=== PATIENT | female | born 1965 | race Two or more races ===

== ENCOUNTER 2020-05-09 13:22 | Inpatient (IN) | payer BC ==
[2020-05-09] MEDS ORDERED: SODIUM CHLORIDE 1,000 ML IV STA (14:54)
[2020-05-09] MEDS ORDERED: FAMOTIDINE 20 MG/50 ML IVPB 20 MG/50 ML MG IVPB ONE ×2 (15:21→16:25)
[2020-05-09] MEDS ORDERED: DEXAMETHASONE SOD PHOSPHATE 10 MG/1 ML VIAL IVPUSH ONE (15:21)
[2020-05-09] MEDS ORDERED: ONDANSETRON 4 MG/2 ML VIAL IVPB ONE (15:21)
[2020-05-09] MEDS ORDERED: ACETAMINOPHEN 325 MG TABLET (FP) PO ONE (15:34)
[2020-05-09 16:17] LABS: BASO % 0.3 % (0-2.0); HEMATOCRIT 38.5 % (32.4-45.2); HEMOGLOBIN 12.8 GM/dL (10.7-15.3); LYMPH % 17.2 % (8-40); MCH 29.8 pg (25.7-33.7); MCHC 33.3 g/dl (32.0-36.0); MEAN CELL VOLUME 89.3 fl (80-96); MEAN PLT VOLUME 8.8 fl (7.5-11.1); MONO % 5.3 % (3.8-10.2); NEUT % 77.2 % (42.8-82.8); PLATELET COUNT 146 K/MM3 (134-434); RBC 4.31 M/mm3 (3.60-5.2); RDW 13.3 % (11.6-15.6); WHITE BLOOD COUNT 4.1 K/mm3 (4.0-10.0)
[2020-05-09] MEDS ORDERED: ACETAMINOPHEN 325 MG TABLET (FP) ONE (16:24)
[2020-05-09] MEDS ORDERED: DEXAMETHASONE SOD PHOSPHATE 10 MG/1 ML VIAL ONE (16:25)
[2020-05-09] MEDS ORDERED: ONDANSETRON 4 MG/2 ML VIAL ONE (16:25)
[2020-05-09 16:29] LABS: CHLORIDE 102 mmol/L (98-107); POTASSIUM 3.9 mmol/L (3.5-5.1)
[2020-05-09 16:31] LABS: ALBUMIN 3.7 g/dl (3.4-5.0); BLOOD UREA NITROGEN 9.7 mg/dL (7-18); CALCIUM 8.2 mg/dL (8.5-10.1); CO2 28 mmol/L (21-32); GLUCOSE,RANDOM 120 mg/dL (74-106)
[2020-05-09 16:34] LABS: CREATININE 0.8 mg/dL (0.55-1.3); SGOT/AST 109 U/L (15-37); SGPT/ALT 149 U/L (13-61)
[2020-05-09 16:35] LABS: INR 1.09 (0.83-1.09); PROTHROMBIN TIME (PATIENT) 13.2 SEC (9.7-13.0)
[2020-05-09 16:37] LABS: BILIRUBIN,TOTAL 0.2 mg/dL (0.2-1); TOT PROT 7.2 g/dl (6.4-8.2)
[2020-05-09 16:38] LABS: ACTIVATED PTT 30.7 SECONDS (25.2-36.5); ALK PHOS 71 U/L (45-117)
[2020-05-09 16:40] LABS: LDH 400 U/L (84-246)
[2020-05-09 16:42] LABS: ANION GAP 4 MMOL/L (8-16); SODIUM 135 mmol/L (136-145)
[2020-05-09] MEDS ORDERED: SODIUM CHLORIDE 0.45% 1,000 ML IV SCH (17:15)
[2020-05-09 18:39] LABS: URINE APPEARANCE CLEAR; URINE BILIRUBIN NEGATIVE (NEGATIVE); URINE COLOR YELLOW; URINE GLUCOSE (UA) NEGATIVE (NEGATIVE); URINE KETONE NEGATIVE (NEGATIVE); URINE LEUK ESTERASE NEGATIVE (NEGATIVE); URINE NITRITE NEGATIVE (NEGATIVE); URINE PROTEIN NEGATIVE (NEGATIVE)
[2020-05-09] MEDS ORDERED: ASCORBIC ACID 500 MG TABLET (FP) ONE (21:39)
[2020-05-09] MEDS: ASCORBIC ACID 500 MG TABLET (FP) PO SCH (21:46)
[2020-05-09 23:29] VITALS: BMI 33.4
[2020-05-10] MEDS: ACETAMINOPHEN 325 MG TABLET (FP) PO PRN (05:32)
[2020-05-10 08:18] LABS: BASO % 0.3 % (0-2.0); HEMATOCRIT 36.2 % (32.4-45.2); HEMOGLOBIN 12.2 GM/dL (10.7-15.3); LYMPH % 18.9 % (8-40); MCH 30.3 pg (25.7-33.7); MCHC 33.8 g/dl (32.0-36.0); MEAN CELL VOLUME 89.8 fl (80-96); MEAN PLT VOLUME 8.7 fl (7.5-11.1); MONO % 5.2 % (3.8-10.2); NEUT % 75.6 % (42.8-82.8); PLATELET COUNT 166 K/MM3 (134-434); RBC 4.03 M/mm3 (3.60-5.2); RDW 13.1 % (11.6-15.6); WHITE BLOOD COUNT 4.5 K/mm3 (4.0-10.0)
[2020-05-10 08:41] LABS: POTASSIUM 4.2 mmol/L (3.5-5.1)
[2020-05-10 08:46] LABS: ALBUMIN 3.3 g/dl (3.4-5.0); MAGNESIUM 2.5 mg/dL (1.8-2.4)
[2020-05-10 08:49] LABS: BILIRUBIN,TOTAL 0.3 mg/dL (0.2-1); CREATININE 0.6 mg/dL (0.55-1.3); PHOSPHOROUS 2.9 mg/dL (2.5-4.9); TOT PROT 6.8 g/dl (6.4-8.2)
[2020-05-10] MEDS: DEXAMETHASONE 4 MG TABLET (FP) PO SCH (10:58)
[2020-05-10] MEDS: ENOXAPARIN NA (PORCINE) 40 MG/0.4 ML DISP.SYRIN SQ SCH (10:58)
[2020-05-10] MEDS: ASCORBIC ACID 500 MG TABLET (FP) PO SCH ×2 (10:59→21:22)
[2020-05-10] MEDS: CHOLECALCIFEROL (VIT D3) 5000 UNITS (125 MCG) CAP PO SCH (12:17)
[2020-05-10] MEDS ORDERED: REMDESIVIR 200 MG in SODIUM CHLORIDE 210 ML IVPB ONE (13:00)
[2020-05-10] MEDS ORDERED: AZITHROMYCIN IVPB 500 MG in DEXTROSE 5%-WATER - 250 ML IVPB ONE (14:48)
[2020-05-10] MEDS ORDERED: CEFTRIAXONE 1 GM in DEXTROSE 5%-WATER - 50 ML IVPB SCH (15:00)
[2020-05-10] MEDS ORDERED: PT OWN MED DRAWER 7, Y5N ONE (16:26)
[2020-05-10] MEDS ORDERED: AZITHROMYCIN IVPB 500 MG/250 ML BAG IVPB ONE (17:15)
[2020-05-11] MEDS: ACETAMINOPHEN 325 MG TABLET (FP) PO PRN ×2 (05:40→12:02)
[2020-05-11 08:41] LABS: HEMATOCRIT 34.7 % (32.4-45.2); HEMOGLOBIN 11.7 GM/dL (10.7-15.3); MCH 30.2 pg (25.7-33.7); MCHC 33.6 g/dl (32.0-36.0); MEAN CELL VOLUME 89.7 fl (80-96); PLATELET COUNT 184 K/MM3 (134-434); RBC 3.86 M/mm3 (3.60-5.2); RDW 13.4 % (11.6-15.6)
[2020-05-11 08:56] LABS: POTASSIUM 3.6 mmol/L (3.5-5.1)
[2020-05-11 09:05] LABS: CALCIUM 7.9 mg/dL (8.5-10.1)
[2020-05-11 09:06] LABS: ALBUMIN 3.3 g/dl (3.4-5.0); BLOOD UREA NITROGEN 12.4 mg/dL (7-18)
[2020-05-11 09:09] LABS: CREATININE 0.8 mg/dL (0.55-1.3)
[2020-05-11 09:10] LABS: BILIRUBIN,TOTAL 0.5 mg/dL (0.2-1); TOT PROT 6.6 g/dl (6.4-8.2)
[2020-05-11] MEDS ORDERED: AZITHROMYCIN IVPB 250 MG in DEXTROSE 5%-WATER - 250 ML IVPB SCH (10:00)
[2020-05-11] MEDS: ASCORBIC ACID 500 MG TABLET (FP) PO SCH ×2 (10:34→21:02)
[2020-05-11] MEDS: DEXAMETHASONE 4 MG TABLET (FP) PO SCH (10:34)
[2020-05-11] MEDS: CHOLECALCIFEROL (VIT D3) 5000 UNITS (125 MCG) CAP PO SCH (10:34)
[2020-05-11] MEDS: ENOXAPARIN NA (PORCINE) 40 MG/0.4 ML DISP.SYRIN SQ SCH (10:35)
[2020-05-11] MEDS: REMDESIVIR 100 MG in SODIUM CHLORIDE 230 ML IVPB SCH (13:10)
[2020-05-11] MEDS: FAMOTIDINE 20 MG TABLET PO SCH (21:02)
[2020-05-12] MEDS ORDERED: morphine CARPU-JECT 4 MG/1 ML DISP.SYRIN IVPUSH ONE (05:34)
[2020-05-12] MEDS: ENOXAPARIN NA (PORCINE) 40 MG/0.4 ML DISP.SYRIN SQ SCH (09:11)
[2020-05-12] MEDS: DEXAMETHASONE 4 MG TABLET (FP) PO SCH (09:11)
[2020-05-12] MEDS: CHOLECALCIFEROL (VIT D3) 5000 UNITS (125 MCG) CAP PO SCH (09:12)
[2020-05-12] MEDS: ASCORBIC ACID 500 MG TABLET (FP) PO SCH ×2 (09:12→21:43)
[2020-05-12] MEDS: FAMOTIDINE 20 MG TABLET PO SCH ×2 (09:12→21:43)
[2020-05-12 09:17] LABS: POTASSIUM 3.8 mmol/L (3.5-5.1)
[2020-05-12 09:21] LABS: CALCIUM 8.1 mg/dL (8.5-10.1)
[2020-05-12 09:22] LABS: ALBUMIN 3.2 g/dl (3.4-5.0); BLOOD UREA NITROGEN 14.3 mg/dL (7-18)
[2020-05-12 09:25] LABS: CREATININE 0.6 mg/dL (0.55-1.3)
[2020-05-12 09:26] LABS: BILIRUBIN,TOTAL 0.2 mg/dL (0.2-1); TOT PROT 6.8 g/dl (6.4-8.2)
[2020-05-12] MEDS: REMDESIVIR 100 MG in SODIUM CHLORIDE 230 ML IVPB SCH (13:32)
[2020-05-13 09:13] LABS: POTASSIUM 4.4 mmol/L (3.5-5.1)
[2020-05-13 09:22] LABS: CALCIUM 8.4 mg/dL (8.5-10.1)
[2020-05-13 09:23] LABS: ALBUMIN 3.3 g/dl (3.4-5.0); BLOOD UREA NITROGEN 15.5 mg/dL (7-18)
[2020-05-13 09:26] LABS: CREATININE 0.7 mg/dL (0.55-1.3)
[2020-05-13 09:27] LABS: BILIRUBIN,TOTAL 0.4 mg/dL (0.2-1); TOT PROT 6.7 g/dl (6.4-8.2)
[2020-05-13] MEDS ORDERED: PT OWN MED DRAWER 7, Y5N ONE (09:36)
[2020-05-13] MEDS: CHOLECALCIFEROL (VIT D3) 5000 UNITS (125 MCG) CAP PO SCH (09:44)
[2020-05-13] MEDS: FAMOTIDINE 20 MG TABLET PO SCH ×2 (09:45→21:06)
[2020-05-13] MEDS: ASCORBIC ACID 500 MG TABLET (FP) PO SCH ×2 (09:45→21:06)
[2020-05-13] MEDS: ENOXAPARIN NA (PORCINE) 40 MG/0.4 ML DISP.SYRIN SQ SCH (09:45)
[2020-05-13] MEDS: DEXAMETHASONE 4 MG TABLET (FP) PO SCH (09:45)
[2020-05-13] MEDS: REMDESIVIR 100 MG in SODIUM CHLORIDE 230 ML IVPB SCH (13:46)
[2020-05-14] MEDS: DEXAMETHASONE 4 MG TABLET (FP) PO SCH (09:01)
[2020-05-14] MEDS: ENOXAPARIN NA (PORCINE) 40 MG/0.4 ML DISP.SYRIN SQ SCH (09:01)
[2020-05-14] MEDS: ASCORBIC ACID 500 MG TABLET (FP) PO SCH (09:02)
[2020-05-14] MEDS: FAMOTIDINE 20 MG TABLET PO SCH (09:02)
[2020-05-14] MEDS: CHOLECALCIFEROL (VIT D3) 5000 UNITS (125 MCG) CAP PO SCH (09:02)
[2020-05-14] MEDS: REMDESIVIR 100 MG in SODIUM CHLORIDE 230 ML IVPB SCH (13:26)
[2020-05-14 15:48] VITALS: BP 115/70; PULSE 70; TEMP 98.4
== END 2020-05-14 17:16 | disposition home or self-care (01) | DRG 177 ==
LOC: JER 13:22 → JERBED 17:57 → J8W 22:53
PROVIDERS: ATTEND Internal Medicine
PROC: XW13325 Transfusion of Convalescent Plasma (Nonautologous) into Peripheral Vein, Percutaneous Approach, New Technology Group 5 (ICD-10-PCS; principal; 2020-05-10)
PROC: XW033E5 Introduction of Remdesivir Anti-infective into Peripheral Vein, Percutaneous Approach, New Technology Group 5 (ICD-10-PCS; 2020-05-10)
DX: U07.1 COVID-19 (principal); J12.82 Pneumonia due to coronavirus disease 2019; J96.01 Acute respiratory failure with hypoxia; R50.9 Fever, unspecified; R00.0 Tachycardia, unspecified; E86.0 Dehydration; E66.9 Obesity, unspecified; Z68.33 Body mass index [BMI] 33.0-33.9, adult
CPT/HCPCS: 36415; 36430; 71045-TC-FY; 80053; 81003; 82550; 82728; 83605; 83615; 83735; 84100; 84484; 85025; 85027; 85379; 85384; 85610; 85730; 86140; 86850; 86900; 86901; 87040; 87086; 93005; 93010; 94010; 94761; 99291; C9399; C9803; J1100; P9017; U0003